=== PATIENT | male | born 1955 | race Caucasian/White ===

== ENCOUNTER 2016-12-02 14:53 | Emergency (ER) | payer MEDICARE ==
--- NOTE | 2016-12-02 15:54 | RAD ---
RIGHT FOOT THREE VIEWS: History: Right foot injury. FINDINGS: Lisfranc joint alignment is anatomic. Plantar arch is maintained. Soft tissue swelling is evident ab out the forefoot. There is osteophytosis throughout the foot. Osteophytes arise from the posterior a spect of the calcaneus. IMPRESSION: 1. Soft tissue swelling. No acute osseous abnormalities are demonstrated. 2. Osteoarthritis of the right foot. 3. Heel spurs. POS: [facility]
== END 2016-12-02 16:03 | disposition home or self-care (01) ==
LOC: NAV ERS 14:53
DX: S93.601A Unspecified sprain of right foot, initial encounter (principal); N40.0 Benign prostatic hyperplasia without lower urinary tract symptoms; J44.9 Chronic obstructive pulmonary disease, unspecified; Z87.891 Personal history of nicotine dependence; Z79.899 Other long term (current) drug therapy; X58.XXXA Exposure to other specified factors, initial encounter

== ENCOUNTER 2016-12-25 08:43 | Outpatient (CLI) | payer MEDICARE ==
[2016-12-25 10:16] LABS: ALT (SGPT) 65 U/L (8-55); AST (SGOT) 126 U/L (5-34); Albumin 2.8 g/dL (3.4-4.8); Alkaline Phosphatase 85 U/L (40-150); Anion Gap 11 mmol/L (10-20); BUN (Urea Nitrogen) 7 mg/dL (8.4-25.7); Bilirubin, Total 2.9 mg/dL (0.2-1.2); Calc. Creatinine Clearance 0 mL/min (70-130); Calcium 8.6 mg/dL (7.8-10.44); Carbon Dioxide 25 mmol/L (23-31); Cardiac Risk 3.7 (Less than 4.5); Chloride 107 mmol/L (98-107); Cholesterol 146 mg/dl (< 200 Desired); Estimated GFR-MDRD 90; Globulin 4.3 g/dL (2.4-3.5); Glucose 122 mg/dL (80-115); HDL Cholesterol 39 mg/dL (>60 Neg Risk); LDL Cholesterol, Calculated 89 mg/dL; Potassium 4.2 mmol/L (3.5-5.1); Protein, Total 7.1 g/dL (5.8-8.1); Sodium 139 mmol/L (136-145); Triglycerides 91 mg/dL (Less than 150)
--- NOTE | 2016-12-25 10:31 | RAD ---
CHEST TWO VIEWS: History: Cirrhosis. FINDINGS: The cardiac silhouette and pulmonary vasculature are unremarkable. Lungs are hyperinflated with scat tered interstitial thickening. Mediastinum is midline. There is no confluent airspace consolidation, pneumothorax or pleural fluid evident. Degenerative changes involve the thoracic spine on the later al view. IMPRESSION: 1. COPD. POS: [facility]
[2016-12-25 10:37] LABS: Blood, Urine Trace (Negative); Clarity Clear (Clear); Glucose, Urine (Dipstick) 100 mg/dL (Negative); Leukocyte Negative (Negative); Nitrite Negative (Negative); Protein, Urine (Dipstick) Negative (Neg-Trace); Urobilinogen > or = 8.0 mg/dL (0.2-1.0)
[2016-12-25 10:40] LABS: PSA-Asymptomatic (SCREENING) 1.46 ng/mL (0-4.0); Thyroid Stimulating Hormone 2.559 uIU/mL (0.35-4.94)
[2016-12-25 10:46] LABS: Bilirubin Negative (Negative); Icto Negative (Negative)
[2016-12-25 11:10] LABS: Bacteria/HPF Rare-Few HPF (None Seen); Other Microscopic Description NO; RBC/HPF 0-3 HPF (0-3); Squamous Epithelial None Seen HPF (0-3); WBC/HPF 0-3 HPF (0-3)
[2016-12-25 12:13] LABS: Hemoglobin 13.7 g/dL (14.0-18.0); MDiff Complete? YES; Mean Corpuscular HGB CONC 35.3 g/dL (32.0-36.0); Mean Corpuscular Hemoglobin 32.6 pg (27.0-31.0); Mean Corpuscular Volume 92.1 fl (80.0-94.0); Mean Platelet Volume 7.4 fL (7.4-10.4); Platelet Count 73 thou/uL (130-400); RBC Distribution Width 12.8 % (11.5-14.5); Red Blood Cell (RBC) Count 4.22 mill/uL (4.70-6.10); White Blood Cell (WBC) Count 3.7 thou/uL (4.8-10.8)
[2016-12-25 12:14] LABS: Eosinophils 6 % (0-10); Lymphocytes 12 % (21-51); Monocytes 15 % (0-10); Neutrophil 67 % (42-75); PLT Morphology Comment Appears Decreased
== END 2016-12-25 08:44 | disposition home or self-care (01) ==
LOC: NAV LAB 08:43
PROVIDERS: ATTEND Internal Medicine
DX: K70.30 Alcoholic cirrhosis of liver without ascites (principal); B18.2 Chronic viral hepatitis C; N40.1 Benign prostatic hyperplasia with lower urinary tract symptoms; J44.9 Chronic obstructive pulmonary disease, unspecified
CPT/HCPCS: 71020; 80053; 80061; 81003; 81015; 83880; 84443; 85025; G0103

== ENCOUNTER 2017-01-23 08:03 | Outpatient (CLI) | payer MEDICARE, OTHER ==
[2017-01-23 12:46] LABS: ALT (SGPT) 78 U/L (8-55); AST (SGOT) 147 U/L (5-34); Albumin 3.2 g/dL (3.4-4.8); Alkaline Phosphatase 88 U/L (40-150); Anion Gap 15 mmol/L (10-20); BUN (Urea Nitrogen) 12 mg/dL (8.4-25.7); Bilirubin, Total 2.2 mg/dL (0.2-1.2); Calc. Creatinine Clearance 0 mL/min (70-130); Calcium 8.6 mg/dL (7.8-10.44); Carbon Dioxide 18 mmol/L (23-31); Chloride 107 mmol/L (98-107); Estimated GFR-MDRD 82; Glucose 88 mg/dL (80-115); Potassium 4.2 mmol/L (3.5-5.1); Protein, Total 8.2 g/dL (5.8-8.1); Sodium 136 mmol/L (136-145)
[2017-01-23 13:32] LABS: #Eosinphils 0.2 thou/uL (0.0-0.7); #Lymphocytes 0.8 thou/uL (1.20-3.40); #Monocytes 0.7 thou/uL (0.11-0.59); #Neutrophils 2.8 thou/uL (1.40-6.50); %Basophils 0.6 % (0.0-1.0); %Eosinophils 5.3 % (0.0-10.0); %Lymphocytes 16.6 % (21.0-51.0); %Monocytes 14.9 % (0.0-10.0); %Neutrophils 62.6 % (42.0-75.0); Hemoglobin 14.8 g/dL (14.0-18.0); Mean Corpuscular HGB CONC 35.4 g/dL (32.0-36.0); Mean Corpuscular Volume 93.1 fl (80.0-94.0); Mean Platelet Volume 7.9 fL (7.4-10.4); Platelet Count 91 thou/uL (130-400); RBC Distribution Width 13.6 % (11.5-14.5); White Blood Cell (WBC) Count 4.5 thou/uL (4.8-10.8)
[2017-01-23 13:33] LABS: PLT Morphology Comment Appears Decreased
== END 2017-01-23 08:04 | disposition home or self-care (01) ==
LOC: NAVSJIPCSP 08:03
PROVIDERS: ATTEND Internal Medicine
DX: B18.2 Chronic viral hepatitis C (principal); D69.6 Thrombocytopenia, unspecified; N40.1 Benign prostatic hyperplasia with lower urinary tract symptoms; J41.0 Simple chronic bronchitis
CPT/HCPCS: 36415; 80053; 85025; 87086

== ENCOUNTER 2017-02-03 09:02 | Outpatient (CLI) | payer MEDICARE, OTHER ==
--- NOTE | 2017-02-03 12:19 | ULT ---
COMPLETE ABDOMINAL ULTRASOUND: HISTORY: Hematuria and abnormal liver and renal laboratory values. TECHNIQUE: Multiplanar, fisher scale, and color Doppler images were obtained in a complete abdominal ultrasound. FINDINGS: The liver is normal in echogenicity without focal lesions or intrahepatic ductal dilatation. The ga llbladder contains a shadowing stone without gallbladder wall thickening or pericholecystic fluid. The common bile duct is normal measuring 6 mm. The pancreas is not well visualized. The aorta and inferior vena cava are normal in caliber. The s pleen is enlarged measuring 17.5 cm in length. Both kidneys are normal in echogenicity without hydronephrosis or calculi measuring 13.6 and 13.1 cm in length on the right and left, respectively. Prevoid bladder volume is 173 mL. No significant p ostvoid residual is seen. IMPRESSION: 1. Cholelithiasis. 2. Splenomegaly. 3. No significant renal abnormality. POS: [facility]
== END 2017-02-03 09:03 | disposition home or self-care (01) ==
LOC: NAV ULT 09:02
PROVIDERS: ATTEND Internal Medicine
DX: R31.9 Hematuria, unspecified (principal); D69.6 Thrombocytopenia, unspecified; K80.20 Calculus of gallbladder without cholecystitis without obstruction; R16.1 Splenomegaly, not elsewhere classified
CPT/HCPCS: 76700; 76770

== ENCOUNTER 2017-03-18 19:00 | Emergency (ER) | payer MEDICARE, OTHER ==
--- NOTE | 2017-03-18 19:37 | RAD ---
LEFT SHOULDER THREE VIEW 03/18/17 HISTORY: Arm and hand weakness. COMPARISON: None. FINDINGS: No acute fracture or malalignment left shoulder. Ribs are unremarkable. IMPRESSION: No acute fracture or malalignment. POS: [facility]
--- NOTE | 2017-03-18 19:41 | RAD ---
CHEST ONE VIEW 03/18/17 HISTORY: Left sided weakness. COMPARISON: None. FINDINGS: There is a left lower lobe air space opacity. No pneumothorax or effusion. The cardiac silhouette and mediastinal contours are similar. IMPRESSION: 1. Similar appearance of the left lower lobe air space opacity which is likely sequela of a pro minent epicardial fat. 2. No focal areas of pneumonia. 3. Lung hyperinflation suggests obstructive pulmonary disease. POS: [facility]
--- NOTE | 2017-03-18 19:46 | CT ---
CT BRAIN WITHOUT CONTRAST 03/18/17 HISTORY: Left arm and hand weakness that started earlier this morning. Six beers last night and fell on the w ay to bed. COMPARISON: None. FINDINGS: No acute territorial infarct or hemorrhage. No midline shift or mass effect. Ventricular size and ex tra-axial CSF spaces are normal. The paranasal sinuses and mastoids are clear. Orbits are normal. There are no maxillary teeth. IMPRESSION: No acute intracranial abnormality. POS: [facility]
[2017-03-18 19:50] LABS: #Basophils 0.1 thou/uL (0.0-0.2); #Eosinphils 0.2 thou/uL (0.0-0.7); #Lymphocytes 0.7 thou/uL (1.20-3.40); #Monocytes 0.4 thou/uL (0.11-0.59); #Neutrophils 2.5 thou/uL (1.40-6.50); %Basophils 1.9 % (0.0-1.0); %Lymphocytes 17.4 % (21.0-51.0); %Monocytes 10.2 % (0.0-10.0); %Neutrophils 64.5 % (42.0-75.0); Hemoglobin 13.6 g/dL (14.0-18.0); Mean Corpuscular HGB CONC 36.8 g/dL (32.0-36.0); Mean Corpuscular Hemoglobin 34.5 pg (27.0-31.0); Mean Corpuscular Volume 93.8 fl (80.0-94.0); Mean Platelet Volume 6.9 fL (7.4-10.4); Platelet Count 82 thou/uL (130-400); RBC Distribution Width 13.5 % (11.5-14.5); Red Blood Cell (RBC) Count 3.94 mill/uL (4.70-6.10); White Blood Cell (WBC) Count 3.9 thou/uL (4.8-10.8)
[2017-03-18 19:52] LABS: ALT (SGPT) 79 U/L (8-55); AST (SGOT) 166 U/L (5-34); Albumin 2.7 g/dL (3.4-4.8); Alcohol 112 mg/dL (Less than 10); Alkaline Phosphatase 71 U/L (40-150); Anion Gap 11 mmol/L (10-20); BUN (Urea Nitrogen) 5 mg/dL (8.4-25.7); Bilirubin, Total 2.4 mg/dL (0.2-1.2); CK (CPK) 140 U/L (30-200); Calc. Creatinine Clearance 0 mL/min (70-130); Calcium 8.3 mg/dL (7.8-10.44); Carbon Dioxide 23 mmol/L (23-31); Chloride 109 mmol/L (98-107); Estimated GFR-MDRD Greater than 90; Globulin 4.2 g/dL (2.4-3.5); Glucose 99 mg/dL (80-115); Potassium 4.2 mmol/L (3.5-5.1); Protein, Total 6.9 g/dL (5.8-8.1); Sodium 139 mmol/L (136-145)
[2017-03-18 19:59] LABS: CKMB 2.9 ng/mL (0-6.6); Troponin I 0.011 ng/mL (< 0.028)
[2017-03-18 20:00] LABS: INR-International Normal Ratio 1.5; Prothrombin Time 18.3 SEC (12.0-14.7)
[2017-03-18 20:00] LABS: Bilirubin Negative (Negative); Blood, Urine Negative (Negative); Clarity Clear (Clear); Glucose, Urine (Dipstick) Negative (Negative); Leukocyte Negative (Negative); Nitrite Negative (Negative); Protein, Urine (Dipstick) Negative (Neg-Trace); pH, Urine 5.5 (5.0-9.0)
[2017-03-18 20:01] LABS: PTT 32.9 SEC (22.9-36.1)
[2017-03-18 20:03] LABS: PLT Morphology Comment Appears Decreased; RBC Morphology Normal
[2017-03-18] MEDS ORDERED: Sodium Chloride 0.9% 500 ML ONE (20:03)
[2017-03-18 20:13] LABS: Amphetamine Not Detected (NotDetected); Barbiturates Screen Not Detected (NotDetected); Benzodiazepine Screen Not Detected (NotDetected); Cocaine Metabolite Screen Not Detected (NotDetected); Medtox Control Line Valid? VALID (VALID); Methadone Not Detected (NotDetected); Methamphetamine Not Detected (NotDetected); Opiate Screen Not Detected (NotDetected); Oxycodone Screen Not Detected (NotDetected); Phencyclidine (PCP) Not Detected (NotDetected); THC/Cannabinoid Screen Detected (NotDetected); Tricyclic Screen Not Detected (NotDetected)
[2017-03-18] MEDS ORDERED: Sodium Chloride 0.9% 1,000 ML ONE (20:37)
--- NOTE | 2017-03-18 21:07 | CT ---
CT CERVICAL SPINE WITHOUT CONTRAST 03/18/17 HISTORY: Unable to use left hand. COMPARISON: None. FINDINGS: No acute fracture or malalignment of cervical spine. Moderate degenerative disc space height loss at C6-7 with anterior and posterior disc osteophyte complex. Moderate bilateral neural foraminal narro wing. Moderate right sided facet arthropathy at C2-3 and left sided facet arthropathy at C4-5. The C6-7 spinal canal is narrowed to approximately 8 mm. The lung apices are clear. IMPRESSION: 1. No acute fracture or malalignment cervical spine. 2. Degenerative disc disease at C5-6 and C6-7 with neural foraminal narrowing and spinal canal narrowing to approximately 8 mm. POS: [facility]
== END 2017-03-18 21:30 | disposition home or self-care (01) ==
LOC: NAV ERS 19:00
DX: M65.30 Trigger finger, unspecified finger (principal); F10.120 Alcohol abuse with intoxication, uncomplicated; Y90.5 Blood alcohol level of 100-119 mg/100 ml; N40.0 Benign prostatic hyperplasia without lower urinary tract symptoms; J44.9 Chronic obstructive pulmonary disease, unspecified; M19.90 Unspecified osteoarthritis, unspecified site; Z87.891 Personal history of nicotine dependence; Z79.51 Long term (current) use of inhaled steroids; Z79.899 Other long term (current) drug therapy; W19.XXXA Unspecified fall, initial encounter
CPT/HCPCS: 36415; 36416; 70450; 71010; 72125; 80053; 80306; 80307; 81003; 82553; 83880; 84484; 85025; 85610; 85730; 93005; 94760; 96360; J7050

== ENCOUNTER 2017-05-13 10:54 | Outpatient (CLI) | payer MEDICARE, OTHER ==
[2017-05-13 13:06] LABS: ALT (SGPT) 91 U/L (8-55); AST (SGOT) 166 U/L (5-34); Albumin 2.7 g/dL (3.4-4.8); Alkaline Phosphatase 84 U/L (40-150); Anion Gap 11 mmol/L (10-20); BUN (Urea Nitrogen) 14 mg/dL (8.4-25.7); Bilirubin, Total 1.6 mg/dL (0.2-1.2); Calc. Creatinine Clearance 0 mL/min (70-130); Calcium 8.2 mg/dL (7.8-10.44); Carbon Dioxide 21 mmol/L (23-31); Chloride 107 mmol/L (98-107); Estimated GFR-MDRD Greater than 90; Globulin 3.4 g/dL (2.4-3.5); Glucose 93 mg/dL (80-115); Potassium 4.4 mmol/L (3.5-5.1); Protein, Total 6.1 g/dL (5.8-8.1); Sodium 135 mmol/L (136-145)
== END 2017-05-13 10:55 | disposition home or self-care (01) ==
LOC: NAVSJIPCSP 10:54
PROVIDERS: ATTEND Internal Medicine
DX: B18.2 Chronic viral hepatitis C (principal)
CPT/HCPCS: 36415; 80053

== ENCOUNTER 2017-07-12 18:23 | Emergency (ER) | payer MEDICARE, OTHER ==
[2017-07-12] MEDS ORDERED: Adacel (T-DAP) 0.5 ML VIAL ONE (19:46)
[2017-07-12] MEDS ORDERED: Ketorolac Tromethamine 60 MG/2 ML VIAL ONE (19:46)
[2017-07-12] MEDS ORDERED: HYDROcodone/Acetaminophen 5/325 mg Tablet ONE (19:48)
--- NOTE | 2017-07-12 20:18 | RAD ---
LEFT KNEE FOUR VIEWS 07/12/17 HISTORY: Fall. Left knee injury. FINDINGS: Joint spaces are preserved. There is mild tricompartmental osteophytosis. No acute fracture or disloc ation. No fluid distention of the joint capsule. IMPRESSION: Mild osteoarthritic changes left knee. POS: [facility]
== END 2017-07-12 20:28 | disposition home or self-care (01) ==
LOC: NAV ERS 18:23
DX: S83.92XA Sprain of unspecified site of left knee, initial encounter (principal); S80.812A Abrasion, left lower leg, initial encounter; J44.9 Chronic obstructive pulmonary disease, unspecified; Z87.891 Personal history of nicotine dependence; W17.2XXA Fall into hole, initial encounter
CPT/HCPCS: 90471; 90715; 96372; J1885

== ENCOUNTER 2017-09-05 01:25 | Emergency (ER) | payer MEDICARE, OTHER ==
[2017-09-05] MEDS ORDERED: Oseltamivir 75 MG CAP ONE (01:53)
[2017-09-05] MEDS ORDERED: Acetaminophen 500 MG TAB ONE (01:53)
[2017-09-05] MEDS ORDERED: Sodium Chloride 0.9% 1,000 ML ONE (02:26)
[2017-09-05 02:46] LABS: #Basophils 0.1 thou/uL (0.0-0.2); #Lymphocytes 0.6 thou/uL (1.20-3.40); #Monocytes 0.7 thou/uL (0.11-0.59); %Basophils 0.7 % (0.0-1.0); %Eosinophils 0.1 % (0.0-10.0); %Lymphocytes 8.1 % (21.0-51.0); %Monocytes 9.7 % (0.0-10.0); %Neutrophils 81.4 % (42.0-75.0); Hemoglobin 13.3 g/dL (14.0-18.0); Mean Corpuscular HGB CONC 35.2 g/dL (32.0-36.0); Mean Corpuscular Hemoglobin 32.7 pg (27.0-31.0); Mean Corpuscular Volume 92.7 fl (80.0-94.0); Mean Platelet Volume 8.7 fL (7.4-10.4); PLT Morphology Comment Appears Decreased; Platelet Count 65 thou/uL (130-400); RBC Distribution Width 12.8 % (11.5-14.5); RBC Morphology Normal; Red Blood Cell (RBC) Count 4.08 mill/uL (4.70-6.10); White Blood Cell (WBC) Count 7.4 thou/uL (4.8-10.8)
[2017-09-05 02:49] LABS: MDiff Complete? YES; Manual Diff?? NO
[2017-09-05 02:57] LABS: ALT (SGPT) 65 U/L (8-55); AST (SGOT) 100 U/L (5-34); Albumin 2.9 g/dL (3.4-4.8); Alkaline Phosphatase 58 U/L (40-150); Anion Gap 13 mmol/L (10-20); BUN (Urea Nitrogen) 11 mg/dL (8.4-25.7); Calc. Creatinine Clearance 0 mL/min (70-130); Calcium 8.2 mg/dL (7.8-10.44); Carbon Dioxide 21 mmol/L (23-31); Chloride 104 mmol/L (98-107); Estimated GFR-MDRD Greater than 90; Globulin 4.4 g/dL (2.4-3.5); Glucose 106 mg/dL (80-115); Protein, Total 7.3 g/dL (5.8-8.1); Sodium 134 mmol/L (136-145)
== END 2017-09-05 03:51 | disposition home or self-care (01) ==
LOC: NAV ERS 01:25
DX: J11.1 Influenza due to unidentified influenza virus with other respiratory manifestations (principal); J44.9 Chronic obstructive pulmonary disease, unspecified; M19.90 Unspecified osteoarthritis, unspecified site; Z87.891 Personal history of nicotine dependence
CPT/HCPCS: 36415; 80053; 83605; 85025; 94640; 96360; J7050; J7620

== ENCOUNTER 2017-12-31 11:55 | Emergency (ER) | payer MEDICARE ==
--- NOTE | 2017-12-31 12:51 | RAD ---
PORTABLE CHEST ONE VIEW: Date: 12-31-17 Time: 12:35 p.m. History: Left sided chest pain. FINDINGS: Comparison is made with exam of 03-18-17. The heart size is borderline. The lungs are well expanded without focal areas of consolidation, pneum othorax, cliff pulmonary edema, or pleural effusions. IMPRESSION: No acute process. POS: [facility]
[2017-12-31 13:01] LABS: ALT (SGPT) 57 U/L (8-55); AST (SGOT) 118 U/L (5-34); Albumin 2.7 g/dL (3.4-4.8); Alkaline Phosphatase 74 U/L (40-150); Anion Gap 9 mmol/L (10-20); BUN (Urea Nitrogen) 7 mg/dL (8.4-25.7); Bilirubin, Total 2.6 mg/dL (0.2-1.2); Calc. Creatinine Clearance 0 mL/min (70-130); Calcium 8.3 mg/dL (7.8-10.44); Carbon Dioxide 22 mmol/L (23-31); Chloride 107 mmol/L (98-107); Estimated GFR-MDRD Greater than 90; Globulin 4.3 g/dL (2.4-3.5); Glucose 131 mg/dL (80-115); Potassium 3.8 mmol/L (3.5-5.1); Sodium 134 mmol/L (136-145)
[2017-12-31 13:02] LABS: CKMB 1.2 ng/mL (0-6.6); Troponin I Less than 0.010 ng/mL (< 0.028)
[2017-12-31 13:12] LABS: #Basophils 0.1 thou/uL (0.0-0.2); #Eosinphils 0.3 thou/uL (0.0-0.7); #Lymphocytes 0.6 thou/uL (1.20-3.40); #Monocytes 0.4 thou/uL (0.11-0.59); #Neutrophils 3.1 thou/uL (1.40-6.50); %Basophils 1.3 % (0.0-1.0); %Eosinophils 6.7 % (0.0-10.0); %Lymphocytes 13.6 % (21.0-51.0); %Monocytes 8.4 % (0.0-10.0); Hemoglobin 13.6 g/dL (14.0-18.0); Mean Corpuscular HGB CONC 34.3 g/dL (32.0-36.0); Mean Corpuscular Volume 93.5 fl (80.0-94.0); Mean Platelet Volume 6.3 fL (7.4-10.4); PLT Morphology Comment Appears Decreased; Platelet Count 83 thou/uL (130-400); RBC Distribution Width 13.2 % (11.5-14.5); Red Blood Cell (RBC) Count 4.23 mill/uL (4.70-6.10); White Blood Cell (WBC) Count 4.4 thou/uL (4.8-10.8)
[2017-12-31 13:15] LABS: MDiff Complete? YES
[2017-12-31] MEDS ORDERED: Sodium Chloride 0.9% 1,000 ML ONE (13:41)
[2017-12-31] MEDS ORDERED: cefTRIAXone\\ROCEPHIN 1 GM VIAL ONE (15:10)
[2017-12-31] MEDS ORDERED: Morphine 4 MG/ML Carpuject ONE (15:10)
--- NOTE | 2017-12-31 15:49 | CT ---
CONTRAST ENHANCED CTA CHEST: 12/31/17 HISTORY: Left sided chest pain, elevated D-dimer. Contrast enhanced CTA of the chest is performed. 2D and 3D reconstructed images performed on an [employer] 3D workstation. Coronary artery calcification seen. Calcification of the mitral annulus is seen. A small left Small l eft sided pleural effusion is seen. No evidence of filling defects seen in the pulmonary arteries to suggest pulmonary emboli. Marked spl enomegaly seen. Extensive numerous left upper quadrant tortuous vessels seen compatible with extensive varicosities. The liver is nodular and cirrhotic in appearance. Mild to moderate bilateral gynecomastia is seen. There is a 2.1 x 2.0 cm soft tissue lesion in the posterior aspect of the right lower lobe. A larger ill-defined lesion also seen in the left lower lobe measuring 2.2 x 2.1 cm with small area of central cavitary change. These may represent possible pulmonary parenchymal metastatic lesions or round pneu monia. IMPRESSION: 1. Bibasilar areas of soft tissue lung parenchymal densities. 2. No evidence of pulmonary emboli. 3. Splenomegaly. 4. Cirrhotic changes seen in the liver. 5. Splenic varicosities. 6. Coronary artery calcifications. 7. Mild annular calcifications. 8. Bilateral gynecomastia. POS: [facility]
== END 2017-12-31 16:26 | disposition short-term general hospital (02) ==
LOC: NAV ERS 11:55
DX: A40.3 Sepsis due to Streptococcus pneumoniae (principal); J90 Pleural effusion, not elsewhere classified; K74.60 Unspecified cirrhosis of liver; J44.9 Chronic obstructive pulmonary disease, unspecified; B19.20 Unspecified viral hepatitis C without hepatic coma; M19.90 Unspecified osteoarthritis, unspecified site; N40.0 Benign prostatic hyperplasia without lower urinary tract symptoms; Z79.899 Other long term (current) drug therapy; Z87.891 Personal history of nicotine dependence
CPT/HCPCS: 71045; 71275; 80053; 82553; 84484; 85025; 85379; 87040; 93005; 94760; 96361; 96374; 96375; J0696; J2270; J7050

== ENCOUNTER 2018-01-13 18:08 | Emergency (ER) | payer MEDICARE ==
[2018-01-13] MEDS ORDERED: Ondansetron ODT 4 MG TAB ONE (18:48)
[2018-01-13] MEDS ORDERED: Morphine 4 MG/ML Carpuject ONE (18:48)
[2018-01-13 19:28] LABS: #Basophils 0.1 thou/uL (0.0-0.2); #Eosinphils 0.3 thou/uL (0.0-0.7); #Lymphocytes 0.7 thou/uL (1.20-3.40); #Monocytes 0.5 thou/uL (0.11-0.59); #Neutrophils 4.6 thou/uL (1.40-6.50); %Basophils 1.3 % (0.0-1.0); %Eosinophils 4.9 % (0.0-10.0); %Lymphocytes 11.2 % (21.0-51.0); %Monocytes 7.5 % (0.0-10.0); %Neutrophils 75.1 % (42.0-75.0); Hemoglobin 12.7 g/dL (14.0-18.0); Mean Corpuscular HGB CONC 33.8 g/dL (32.0-36.0); Mean Corpuscular Hemoglobin 31.8 pg (27.0-31.0); Mean Corpuscular Volume 94.1 fl (80.0-94.0); Mean Platelet Volume 6.7 fL (7.4-10.4); Platelet Count 85 thou/uL (130-400); RBC Distribution Width 13.4 % (11.5-14.5); White Blood Cell (WBC) Count 6.1 thou/uL (4.8-10.8)
--- NOTE | 2018-01-13 19:57 | RAD ---
TWO VIEWS OF THE RIGHT TIBIA AND FIBULA 01/13/18 HISTORY: Fell over and horse stepped on his right leg with pain and swelling of the right leg. FINDINGS: Two views right tibia/fibula shows moderate diffuse soft tissue swelling. There is no evidence of acu te fracture or dislocation. No radiopaque foreign body is seen. IMPRESSION: No evidence of acute osseous abnormality. POS: [facility]
[2018-01-13] MEDS ORDERED: Bacitracin Zinc 1 Packet ONE (20:05)
--- NOTE | 2018-01-13 20:39 | RAD ---
FOUR VIEWS RIGHT KNEE: 01/13/18 COMPARISON: None. HISTORY: Right knee pain after fall. A horse stepped on the right leg. FINDINGS: Four views or the right knee shows no evidence of acute fracture or dislocation. Mild tricompartmenta l osteophytes are seen consistent with osteoarthritis. Moderate diffuse soft tissue swelling is seen. No knee effusion is seen. IMPRESSION: Right knee osteoarthritis without acute osseous abnormality. POS: [facility]
== END 2018-01-13 20:22 | disposition home or self-care (01) ==
LOC: NAV ERS 18:08
DX: S83.91XA Sprain of unspecified site of right knee, initial encounter (principal); S70.11XA Contusion of right thigh, initial encounter; S80.11XA Contusion of right lower leg, initial encounter; J44.9 Chronic obstructive pulmonary disease, unspecified; N40.0 Benign prostatic hyperplasia without lower urinary tract symptoms; M19.90 Unspecified osteoarthritis, unspecified site; Z87.891 Personal history of nicotine dependence; Z79.51 Long term (current) use of inhaled steroids; Z79.899 Other long term (current) drug therapy; V80.010A Animal-rider injured by fall from or being thrown from horse in noncollision accident, initial encounter
CPT/HCPCS: 82550; 85025; 96372; J2270; Q0162

== ENCOUNTER 2018-01-17 19:03 | Emergency (ER) | payer MEDICARE ==
[2018-01-17] MEDS ORDERED: Morphine 4 MG/ML Carpuject ONE (19:41)
[2018-01-17] MEDS ORDERED: Ondansetron HCl/PF 4 MG/2 ML Vial ONE (19:41)
[2018-01-17 20:08] LABS: #Eosinphils 0.3 thou/uL (0.0-0.7); #Lymphocytes 0.7 thou/uL (1.20-3.40); #Monocytes 0.5 thou/uL (0.11-0.59); %Basophils 0.7 % (0.0-1.0); %Lymphocytes 12.5 % (21.0-51.0); %Monocytes 8.3 % (0.0-10.0); %Neutrophils 73.6 % (42.0-75.0); Hemoglobin 11.7 g/dL (14.0-18.0); Mean Corpuscular HGB CONC 34.7 g/dL (32.0-36.0); Mean Corpuscular Hemoglobin 32.3 pg (27.0-31.0); Mean Corpuscular Volume 92.9 fl (80.0-94.0); Platelet Count 88 thou/uL (130-400); RBC Distribution Width 13.3 % (11.5-14.5); Red Blood Cell (RBC) Count 3.63 mill/uL (4.70-6.10); White Blood Cell (WBC) Count 5.4 thou/uL (4.8-10.8)
[2018-01-17 20:19] LABS: INR-International Normal Ratio 1.4
[2018-01-17 20:20] LABS: PTT 26.4 SEC (22.9-36.1)
[2018-01-17 20:26] LABS: ALT (SGPT) 53 U/L (8-55); AST (SGOT) 114 U/L (5-34); Albumin 2.6 g/dL (3.4-4.8); Alkaline Phosphatase 64 U/L (40-150); Anion Gap 9 mmol/L (10-20); BUN (Urea Nitrogen) 12 mg/dL (8.4-25.7); Bilirubin, Total 2.4 mg/dL (0.2-1.2); Calc. Creatinine Clearance 0 mL/min (70-130); Carbon Dioxide 25 mmol/L (23-31); Chloride 105 mmol/L (98-107); Estimated GFR-MDRD Greater than 90; Globulin 3.8 g/dL (2.4-3.5); Glucose 121 mg/dL (80-115); Protein, Total 6.4 g/dL (5.8-8.1); Sodium 135 mmol/L (136-145)
== END 2018-01-17 21:05 | disposition short-term general hospital (02) ==
LOC: NAV ERS 19:03
DX: S80.01XA Contusion of right knee, initial encounter (principal); R20.2 Paresthesia of skin; N40.0 Benign prostatic hyperplasia without lower urinary tract symptoms; J44.9 Chronic obstructive pulmonary disease, unspecified; M19.90 Unspecified osteoarthritis, unspecified site; Z86.19 Personal history of other infectious and parasitic diseases; Z87.891 Personal history of nicotine dependence; Z79.899 Other long term (current) drug therapy; W55.12XA Struck by horse, initial encounter
CPT/HCPCS: 80053; 85025; 85610; 85730; 96374; 96375; J2270; J2405

== ENCOUNTER 2018-02-20 10:53 | Emergency (ER) | payer MEDICARE ==
[2018-02-20 11:43] LABS: Bilirubin Small (Negative); Blood, Urine Moderate (Negative); Clarity Clear (Clear); Glucose, Urine (Dipstick) Negative (Negative); Leukocyte Negative (Negative); Nitrite Positive (Negative); Protein, Urine (Dipstick) Negative (Neg-Trace); Specific Gravity, Urine 1.015 (1.005-1.030)
--- NOTE | 2018-02-20 11:46 | RAD ---
1 VIEW CHEST: Date: 02/20/18 COMPARISON: 12/31/17. HISTORY: Fever. FINDINGS: Upper normal cardiac silhouette. Pulmonary vessels are prominent. Increased interstitial opacities ar e presumed to be chronic. No masses or consolidation. No pleural effusion. No pneumothorax. IMPRESSION: Cardiomegaly. Mild pulmonary vascular prominence. Correlate for volume overload. POS: [facility]
[2018-02-20 11:47] LABS: #Basophils 0.1 thou/uL (0.0-0.2); #Eosinphils 0.2 thou/uL (0.0-0.7); #Lymphocytes 0.8 thou/uL (1.20-3.40); #Monocytes 0.7 thou/uL (0.11-0.59); %Basophils 1.2 % (0.0-1.0); %Eosinophils 1.7 % (0.0-10.0); %Lymphocytes 9.6 % (21.0-51.0); %Monocytes 7.8 % (0.0-10.0); %Neutrophils 79.6 % (42.0-75.0); Anisocytosis SLIGHT = 6-15 cells (100X) (0-5/hpf); Hemoglobin 13.4 g/dL (14.0-18.0); MDiff Complete? YES; Mean Corpuscular HGB CONC 35.3 g/dL (32.0-36.0); Mean Corpuscular Hemoglobin 32.8 pg (27.0-31.0); Mean Corpuscular Volume 92.9 fL (78.0-98.0); Mean Platelet Volume 7.1 fL (7.4-10.4); PLT Morphology Comment Appears Decreased; Platelet Count 70 thou/uL (130-400); RBC Distribution Width 12.8 % (11.5-14.5); Red Blood Cell (RBC) Count 4.09 mill/uL (4.70-6.10); White Blood Cell (WBC) Count 8.7 thou/uL (4.8-10.8)
--- NOTE | 2018-02-20 11:51 | RAD ---
LEFT FOREARM: History: Fever. Comparison: None. FINDINGS: There is mild dorsal soft tissue edema. There is moderate to severe degenerative disease of the media l compartment of the elbow. IMPRESSION: Moderate dorsal soft tissue edema. No acute fracture is appreciated. POS: [facility]
[2018-02-20 11:53] LABS: ALT (SGPT) 31 U/L (8-55); AST (SGOT) 62 U/L (5-34); Albumin 2.9 g/dL (3.4-4.8); Alkaline Phosphatase 65 U/L (40-150); Anion Gap 11 mmol/L (10-20); BUN (Urea Nitrogen) 9 mg/dL (8.4-25.7); Bilirubin, Total 4.1 mg/dL (0.2-1.2); Calc. Creatinine Clearance 0 mL/min (70-130); Calcium 8.4 mg/dL (7.8-10.44); Carbon Dioxide 20 mmol/L (23-31); Chloride 105 mmol/L (98-107); Estimated GFR-MDRD Greater than 90; Globulin 4.3 g/dL (2.4-3.5); Glucose 106 mg/dL (80-115); Potassium 4.1 mmol/L (3.5-5.1); Protein, Total 7.2 g/dL (5.8-8.1); Sodium 132 mmol/L (136-145)
[2018-02-20 12:22] LABS: Bacteria/HPF Rare-Few HPF (None Seen); Squamous Epithelial None Seen HPF (0-3); WBC/HPF 0-3 HPF (0-3)
[2018-02-20 12:23] LABS: Other Microscopic Description NO
[2018-02-20] MEDS ORDERED: Clindamycin 150 MG CAP ONE (12:47)
== END 2018-02-20 12:55 | disposition home or self-care (01) ==
LOC: NAV ERS 10:53
DX: L03.114 Cellulitis of left upper limb (principal); L03.115 Cellulitis of right lower limb; J44.9 Chronic obstructive pulmonary disease, unspecified; Z87.891 Personal history of nicotine dependence; Z79.899 Other long term (current) drug therapy
CPT/HCPCS: 71045; 80053; 81003; 81015; 83605; 85025; 85652; 87040; 96360

== ENCOUNTER 2018-07-11 12:24 | Emergency (ER) | payer MEDICARE, OTHER ==
--- NOTE | 2018-07-11 15:58 | RAD ---
CHEST PA AND LATERAL: 07/11/18 HISTORY: 62-year-old male with history of bodyaches, fever, vomiting, and congestion. COMPARISON: 12/25/16. FINDINGS: Borderline hyperinflation. Heart size is within normal limits. Approximately 1.5 cm diameter pulmonar y nodule lying at the left cardiophrenic region unchanged from prior CT of 04/27/18. No confluent pneumonia, overt edema, or pleural effusion. IMPRESSION: Overall stable pulmonary nodule at the left cardiophrenic region. No other significant acute process. Atherosclerosis of the aorta. Stable from CT 04/27/18. POS: [facility]
== END 2018-07-11 13:44 | disposition home or self-care (01) ==
LOC: NAV ERS 12:24
DX: J20.9 Acute bronchitis, unspecified (principal); M19.90 Unspecified osteoarthritis, unspecified site; J44.9 Chronic obstructive pulmonary disease, unspecified; Z87.891 Personal history of nicotine dependence; Z79.899 Other long term (current) drug therapy; N40.0 Benign prostatic hyperplasia without lower urinary tract symptoms
CPT/HCPCS: 71046; 87804

== ENCOUNTER 2018-08-04 14:54 | Outpatient (CLI) | payer MEDICARE, OTHER ==
--- NOTE | 2018-08-04 15:47 | RAD ---
CHEST TWO VIEWS: History: Lung mass. Comparison: 07-11-18 FINDINGS: POS: [facility]
--- NOTE | 2018-08-05 07:28 | RAD ---
CHEST TWO VIEWS: HISTORY: Lung mass. COMPARISON: Radiograph from 07/11/2018. FINDINGS: Similar appearance to the left lower lobe lung mass. No new superimposed mass. No pneumothorax or e ffusion. The cardiac silhouette and mediastinal contours are within normal limits. IMPRESSION: Unchanged left basilar mass. POS: [facility]
== END 2018-08-04 14:55 | disposition home or self-care (01) ==
LOC: NAV RAD 14:54
PROVIDERS: ATTEND Internal Medicine
DX: R91.8 Other nonspecific abnormal finding of lung field (principal)
CPT/HCPCS: 71046

== ENCOUNTER 2018-12-10 17:27 | Outpatient (CLI) | payer MEDICARE, OTHER ==
[2018-12-10 18:06] LABS: #Basophils 0.1 thou/uL (0.0-0.2); #Eosinphils 0.9 thou/uL (0.0-0.7); #Lymphocytes 0.9 thou/uL (1.20-3.40); #Neutrophils 6.1 thou/uL (1.40-6.50); %Basophils 1.6 % (0.0-1.0); %Eosinophils 10.2 % (0.0-10.0); %Monocytes 11.3 % (0.0-10.0); %Neutrophils 66.9 % (42.0-75.0); Hemoglobin 13.1 g/dL (14.0-18.0); Mean Corpuscular HGB CONC 35.1 g/dL (32.0-36.0); Mean Corpuscular Hemoglobin 33.6 pg (27.0-31.0); Mean Corpuscular Volume 95.7 fL (78.0-98.0); Mean Platelet Volume 5.9 fL (7.4-10.4); Platelet Count 103 thou/uL (130-400); RBC Distribution Width 14.5 % (11.5-14.5); Red Blood Cell (RBC) Count 3.89 mill/uL (4.70-6.10); White Blood Cell (WBC) Count 9.1 thou/uL (4.8-10.8)
[2018-12-10 18:15] LABS: ALT (SGPT) 58 U/L (8-55); AST (SGOT) 159 U/L (5-34); Albumin 2.7 g/dL (3.4-4.8); Alkaline Phosphatase 109 U/L (40-150); Anion Gap 8 mmol/L (10-20); BUN (Urea Nitrogen) 7 mg/dL (8.4-25.7); Bilirubin, Total 3.8 mg/dL (0.2-1.2); Calc. Creatinine Clearance 0 mL/min (70-130); Carbon Dioxide 25 mmol/L (23-31); Chloride 105 mmol/L (98-107); Estimated GFR-MDRD Greater than 90; Globulin 4.3 g/dL (2.4-3.5); Glucose 75 mg/dL (80-115); Potassium 4.1 mmol/L (3.5-5.1); Sodium 134 mmol/L (136-145)
--- NOTE | 2018-12-10 20:44 | CT ---
CT OF THE ABDOMEN AND PELVIS WITH IV CONTRAST 12/10/18 INDICATION: Incarcerated hernia. COMPARISON: CTA of the thorax dated 12/31/17 and abdominal ultrasound dated 02/03/17. FINDINGS: There is a cavitary lesion within the left lower lobe that has actually decreased in size from the co mparison in 2018 where it measured approximately 2.2 cm and on today's examination measures 1.6 cm. T he suspected solid pulmonary nodule right lower lobe is decreased in size measuring 17 mm where it pr eviously measured 21 mm. Again seen is cirrhotic morphology of the liver. There are numerous hypodensities that were not well appreciated on the comparison CTA examination involving the liver. One of the largest seen in segme nt of the right hepatic lobe measuring 5 cm. One is seen within the superior aspect of the left he patic lobe measuring 5 cm. There are numerous additional tiny scattered nodules throughout the liver. There is a gallstone seen within the gallbladder neck. The pancreas is unremarkable. The spleen is en larged measuring 17 cm. There are prominent varicosities adjacent to the spleen and within the gastro hepatic region. There are numerous enlarged lymph nodes within the upper abdomen adjacent to the gastrohepatic ligame nt. One of the largest measures 2.1 cm. There are numerous enlarged lymph nodes within the periaortic region of the upper abdomen. There is moderate ascites. The prostate is mildly enlarged measuring 5.3 cm. No inguinal hernia is evident. There is a small flu id and fat containing umbilical hernia. There is a mild amount of retained stool within the colon. There is scattered diverticula involving t he colon. There is calcification of the vas deferens. No definite acute osseous abnormality is evident. IMPRESSION: 1. Findings of cirrhosis and portal hypertension. 2. New scattered hypodensities within the liver may reflect metastatic disease or multifocal HCC . A multiphase MR of the abdomen with and without contrast is recommended for additional characteriza tion. 3. Enlarged lymph nodes can be seen in cirrhotic patient's; however, malignant lymphadenopathy i s not excluded. 4. Cholelithiasis. 5. No incarcerated hernia is demonstrated. There is a fat and fluid containing umbilical hernia. 6. Bilateral lower lobe pulmonary nodules have decreased in size from prior examination. These a re nonspecific and may reflect inflammatory nodule or possibly fluid filled pulmonary cysts. Dedicat ed full nonemergent CT of the thorax to evaluate for additional pulmonary nodularity is recommended. 7. Other chronic findings as above. Code T POS: [facility]
== END 2018-12-10 17:28 | disposition home or self-care (01) ==
LOC: NAV CT 17:27
PROVIDERS: ATTEND Internal Medicine
DX: Z01.812 Encounter for preprocedural laboratory examination (principal); K46.0 Unspecified abdominal hernia with obstruction, without gangrene; R59.0 Localized enlarged lymph nodes; K80.20 Calculus of gallbladder without cholecystitis without obstruction; K42.9 Umbilical hernia without obstruction or gangrene; K59.00 Constipation, unspecified; K57.30 Diverticulosis of large intestine without perforation or abscess without bleeding; R91.8 Other nonspecific abnormal finding of lung field; N40.0 Benign prostatic hyperplasia without lower urinary tract symptoms; R18.8 Other ascites; K76.89 Other specified diseases of liver
CPT/HCPCS: 74177; 80053; 85025

== ENCOUNTER 2018-12-21 12:59 | Emergency (ER) | payer MEDICARE, OTHER ==
[2018-12-21 14:04] LABS: INR-International Normal Ratio 1.5; PTT 32.1 SEC (22.9-36.1); Prothrombin Time 17.9 SEC (12.0-14.7)
[2018-12-21 14:16] LABS: ALT (SGPT) 57 U/L (8-55); AST (SGOT) 179 U/L (5-34); Albumin 2.5 g/dL (3.4-4.8); Alkaline Phosphatase 103 U/L (40-150); Anion Gap 10 mmol/L (10-20); BUN (Urea Nitrogen) 10 mg/dL (8.4-25.7); Calc. Creatinine Clearance 0 mL/min (70-130); Calcium 8.1 mg/dL (7.8-10.44); Carbon Dioxide 26 mmol/L (23-31); Chloride 99 mmol/L (98-107); Estimated GFR-MDRD Greater than 90; Globulin 4.5 g/dL (2.4-3.5); Glucose 126 mg/dL (80-115); Magnesium 1.5 mg/dL (1.6-2.6); Potassium 4.1 mmol/L (3.5-5.1); Sodium 131 mmol/L (136-145)
[2018-12-21 14:22] LABS: Bilirubin Negative (Negative); Blood, Urine Trace (Negative); Clarity Clear (Clear); Glucose, Urine (Dipstick) Negative (Negative); Leukocyte Negative (Negative); Nitrite Negative (Negative); Protein, Urine (Dipstick) Negative (Neg-Trace); Urobilinogen > or = 8.0 mg/dL (0.2-1.0)
--- NOTE | 2018-12-21 14:23 | RAD ---
CHEST 1 VIEW PORTABLE: Date: 12/21/18 HISTORY: Abdominal distention, history of cirrhosis. COMPARISON: 08/04/18. FINDINGS: Heart size is within normal limits. Minimal right hemidiaphragm elevation. The two lower lobe nodules seen on prior abdomen and pelvic CT scan of 12/10/18 are not definitively imaged on this semiupright portable chest. Visualized lung claros appear clear. IMPRESSION: Minimal right hemidiaphragm elevation. Borderline heart size. Two nodules seen on prior recent CT of 12/10/18 in the lower lobes bilaterally are not definitely imaged on this chest x-ray 1 view. POS: [facility]
[2018-12-21 14:30] LABS: #Basophils 0.1 thou/uL (0.0-0.2); #Eosinphils 0.9 thou/uL (0.0-0.7); #Lymphocytes 0.6 thou/uL (1.20-3.40); #Monocytes 0.5 thou/uL (0.11-0.59); #Neutrophils 4.5 thou/uL (1.40-6.50); %Basophils 1.2 % (0.0-1.0); %Eosinophils 13.9 % (0.0-10.0); %Lymphocytes 8.9 % (21.0-51.0); %Monocytes 7.5 % (0.0-10.0); %Neutrophils 68.6 % (42.0-75.0); Band 3 % (5-11); Eosinophils 12 % (0-10); Hemoglobin 13.2 g/dL (14.0-18.0); Lymphocytes 8 % (21-51); MDiff Complete? YES; Mean Corpuscular HGB CONC 34.9 g/dL (32.0-36.0); Mean Corpuscular Hemoglobin 33.4 pg (27.0-31.0); Mean Corpuscular Volume 95.6 fL (78.0-98.0); Mean Platelet Volume 5.9 fL (7.4-10.4); Monocytes 7 % (0-10); Neutrophil 70 % (42-75); Platelet Count 82 thou/uL (130-400); Platelet Morphology Comment Appears Decreased; RBC Distribution Width 14.8 % (11.5-14.5); RBC Morphology Normal; Red Blood Cell (RBC) Count 3.97 mill/uL (4.70-6.10); White Blood Cell (WBC) Count 6.6 thou/uL (4.8-10.8)
[2018-12-21 14:40] LABS: Bacteria/HPF None Seen HPF (None Seen); RBC/HPF 0-3 HPF (0-3); Squamous Epithelial 0-3 HPF (0-3); WBC/HPF None Seen HPF (0-3)
== END 2018-12-21 16:04 | disposition short-term general hospital (02) ==
LOC: NAV ERS 12:59
DX: D69.6 Thrombocytopenia, unspecified (principal); R18.8 Other ascites; J44.9 Chronic obstructive pulmonary disease, unspecified; N40.0 Benign prostatic hyperplasia without lower urinary tract symptoms; Z87.891 Personal history of nicotine dependence; Z79.899 Other long term (current) drug therapy
CPT/HCPCS: 71045; 80053; 81003; 81015; 82140; 83605; 83735; 83880; 85025; 85610; 85730; 93005; 94760

== ENCOUNTER 2018-12-29 12:28 | Outpatient (CLI) | payer MEDICARE ==
[2018-12-29 13:01] LABS: Anion Gap 13 mmol/L (10-20); BUN (Urea Nitrogen) 13 mg/dL (8.4-25.7); Calc. Creatinine Clearance 0 mL/min (70-130); Calcium 8.3 mg/dL (7.8-10.44); Carbon Dioxide 27 mmol/L (23-31); Chloride 101 mmol/L (98-107); Estimated GFR-MDRD Greater than 90; Glucose 87 mg/dL (80-115); Potassium 4.6 mmol/L (3.5-5.1); Sodium 136 mmol/L (136-145)
== END 2018-12-29 12:29 | disposition home or self-care (01) ==
LOC: NAV LABSP 12:28
PROVIDERS: ATTEND Internal Medicine
DX: K70.31 Alcoholic cirrhosis of liver with ascites (principal); K72.90 Hepatic failure, unspecified without coma; R91.8 Other nonspecific abnormal finding of lung field
CPT/HCPCS: 36415; 80048; 82140; 83880

== ENCOUNTER 2019-03-10 08:31 | Outpatient (CLI) | payer MEDICARE ==
--- NOTE | 2019-03-10 09:51 | CT ---
CLINICAL HISTORY: Liver mass. TECHNIQUE: Multiple contiguous axial images were obtained and a CT of the abdomen without and with IV contrast. Postcontrast images were obtained in the arterial and portal venous phases. Coronal reformats were performed. COMPARISON: MRI abdomen 02/19/2019; CT abdomen/pelvis 12/10/2018 FINDINGS: Liver: Size: Normal. Contour: Nodular consistent with cirrhosis. Mass: Multiple hypodense lesions are seen scattered throughout the liver. These do not demonstrate ob vious enhancement on the arterial or portal venous phase images and enhance less than the background liver parenchyma. Gallbladder and biliary system: Cholelithiasis present. No biliary ductal dilatation. Spleen: Enlarged and contains calcified granulomas. Pancreas: Normal. Kidneys: Normal. Adrenal glands: Normal. GI tract: Normal. Abdominal aorta and its major branches: Normal. No aneurysm. Peritoneum/retroperitoneum: Small ascites. No adenopathy. Left splenorenal shunt. Body wall and musculoskeletal: Degenerative changes in the spine. Visualized lower thorax: A calcified granuloma is seen in the left lower lobe. Stable noncalcified no dules are seen in both lower lobes. No new pulmonary parenchymal mass or pleural effusion. IMPRESSION: 1. Cirrhosis with sequelae of portal hypertension 2. Nonspecific hepatic masses do not demonstrate significant enhancement. These are grossly stable in size. 3. Cholelithiasis 4. Stable bilateral pulmonary nodules
== END 2019-03-10 08:32 | disposition home or self-care (01) ==
LOC: NAV CT 08:31
PROVIDERS: ATTEND Internal Medicine
DX: K76.9 Liver disease, unspecified (principal); R93.2 Abnormal findings on diagnostic imaging of liver and biliary tract; K70.30 Alcoholic cirrhosis of liver without ascites; R18.8 Other ascites; B18.2 Chronic viral hepatitis C; K76.6 Portal hypertension; K80.20 Calculus of gallbladder without cholecystitis without obstruction; R91.8 Other nonspecific abnormal finding of lung field
CPT/HCPCS: 74170

== ENCOUNTER 2019-03-11 11:25 | Emergency (ER) | payer MEDICARE ==
[2019-03-11] MEDS ORDERED: Acetaminophen/Codeine 30-300mg Tablet ONE (11:50)
--- NOTE | 2019-03-11 11:53 | RAD ---
EXAM: 2 views of the left forearm HISTORY: Forearm pain COMPARISON: 02/20/2018 FINDINGS: There is no evidence of acute fracture or dislocation. Mild diffuse soft tissue swelling is seen. No degenerative changes are seen in the wrist or elbow. IMPRESSION: No evidence of acute osseous abnormality.
[2019-03-11] MEDS ORDERED: Cephalexin 250 MG CAP ONE (12:16)
== END 2019-03-11 12:24 | disposition home or self-care (01) ==
LOC: NAV ERS 11:25
DX: L03.114 Cellulitis of left upper limb (principal); N40.0 Benign prostatic hyperplasia without lower urinary tract symptoms; J44.9 Chronic obstructive pulmonary disease, unspecified; Z87.891 Personal history of nicotine dependence

== ENCOUNTER 2019-05-10 10:46 | Emergency (ER) | payer MEDICARE ==
[2019-05-10 11:19] LABS: Bilirubin Small (Negative); Blood, Urine Trace (Negative); Clarity Clear (Clear); Glucose, Urine (Dipstick) Negative (Negative); Leukocyte Negative (Negative); Nitrite Negative (Negative); Protein, Urine (Dipstick) Negative (Neg-Trace); Urobilinogen > or = 8.0 mg/dL (Less than 2)
[2019-05-10 11:29] LABS: Bacteria/HPF None Seen HPF (None Seen); RBC/HPF 0-3 HPF (0-3); WBC/HPF 0-3 HPF (0-3)
--- NOTE | 2019-05-10 11:54 | RAD ---
EXAM: Single view of the chest HISTORY: Cough COMPARISON: 12/21/2018 FINDINGS: Single view of the chest shows a normal sized cardiomediastinal silhouette. There is no fanta dence of consolidation, mass, or pleural effusion. The bones are unremarkable. IMPRESSION: No evidence of acute cardiopulmonary disease
[2019-05-10 12:01] LABS: ALT (SGPT) 50 U/L (8-55); AST (SGOT) 113 U/L (5-34); Albumin 2.7 g/dL (3.4-4.8); Alkaline Phosphatase 115 U/L (40-150); Anion Gap 12 mmol/L (10-20); BUN (Urea Nitrogen) 8 mg/dL (8.4-25.7); Bilirubin, Total 6.4 mg/dL (0.2-1.2); Calc. Creatinine Clearance 0 mL/min (70-130); Calcium 8.3 mg/dL (7.8-10.44); Carbon Dioxide 24 mmol/L (23-31); Chloride 101 mmol/L (98-107); Estimated GFR-MDRD Greater than 90; Globulin 4.7 g/dL (2.4-3.5); Glucose 119 mg/dL (80-115); Lipase 94 U/L (8-78); Potassium 3.8 mmol/L (3.5-5.1); Protein, Total 7.4 g/dL (5.8-8.1); Sodium 133 mmol/L (136-145)
[2019-05-10 12:03] LABS: #Basophils 0.1 thou/uL (0.0-0.2); #Lymphocytes 0.6 thou/uL (1.20-3.40); #Monocytes 0.5 thou/uL (0.11-0.59); #Neutrophils 5.6 thou/uL (1.40-6.50); %Basophils 1.6 % (0.0-1.0); %Eosinophils 12.4 % (0.0-10.0); %Lymphocytes 8.1 % (21.0-51.0); %Monocytes 6.6 % (0.0-10.0); %Neutrophils 71.3 % (42.0-75.0); Hemoglobin 12.9 g/dL (14.0-18.0); Mean Corpuscular HGB CONC 36.6 g/dL (32.0-36.0); Mean Corpuscular Volume 95.7 fL (78.0-98.0); Mean Platelet Volume 5.4 fL (7.4-10.4); Platelet Count 88 thou/uL (130-400); RBC Distribution Width 15.6 % (11.5-14.5); Red Blood Cell (RBC) Count 3.69 mill/uL (4.70-6.10); White Blood Cell (WBC) Count 7.9 thou/uL (4.8-10.8)
[2019-05-10 12:04] LABS: Anisocytosis SLIGHT = 6-15 cells (100X) (0-5/hpf); MDiff Complete? YES; Platelet Morphology Comment Appears Adequate
== END 2019-05-10 14:20 | disposition home or self-care (01) ==
LOC: NAV ERS 10:46
DX: R10.11 Right upper quadrant pain (principal); N40.0 Benign prostatic hyperplasia without lower urinary tract symptoms; J44.9 Chronic obstructive pulmonary disease, unspecified; Z87.891 Personal history of nicotine dependence; Z79.899 Other long term (current) drug therapy; Z79.51 Long term (current) use of inhaled steroids
CPT/HCPCS: 71045; 80053; 81003; 81015; 83690; 85025; 87804; 93005